=== PATIENT | female | born 1975 | race Hispanic/Latino ===

== ENCOUNTER 2020-08-25 19:36 | Emergency (ER) | payer OTHER ==
[2020-08-25 21:51] LABS: BASOPHILS % (AUTO) 0.5 % (0.0-5.0); EOSINOPHILS % (AUTO) 1.5 % (0.0-8.0); HEMATOCRIT 41.3 % (36-48); LYMPHOCYTES % (AUTO) 29.8 % (21.0-51.0); MEAN CORPUSCULAR HEMOGLOBIN 28.5 pg (27.0-33.0); MEAN CORPUSCULAR HGB CONC 32.2 g/dL (32.0-36.0); MEAN CORPUSCULAR VOLUME 88.6 fL (79-99); MONOCYTES % (AUTO) 7.3 % (3.0-13.0); NEUTROPHILS % (AUTO) 60.5 % (40.0-77.0); PLATELET COUNT (AUTO) 388 K/uL (130-400); RED BLOOD CELL COUNT(AUTO) 4.66 MIL/uL (4.00-5.50); RED CELL DISTRIBUTION WIDTH 13.3 % (11.0-15.5); WHITE BLOOD COUNT (AUTO) 13.1 K/uL (4.8-10.8)
[2020-08-25 22:04] LABS: ALBUMIN 3.6 g/dL (3.5-5.0); BILIRUBIN,TOTAL 0.2 mg/dL (0.2-1.0); CREATININE 0.9 mg/dL (0.5-1.5); POTASSIUM 3.8 mmol/L (3.5-5.1); TOTAL PROTEIN, SERUM 7.9 g/dL (6.0-8.3)
[2020-08-25 22:09] LABS: APPEARANCE,URINE Clear (CLEAR); BILIRUBIN,URINE Negative (NEGATIVE); COLOR,URINE Yellow (YELLOW); GLUCOSE, URINE (UA) Negative (NEGATIVE); KETONES,URINE Negative (NEGATIVE); LEUKOCYTE ESTERASE ,URINE Negative (NEGATIVE); NITRATE,URINE Negative (NEGATIVE); OCCULT BLOOD,URINE Negative (NEGATIVE); PH,URINE 6.5 (5.0-8.0); PROTEIN,URINE Negative (NEGATIVE)
[2020-08-25] MEDS ORDERED: ONDANSETRON HCL 4 MG/2 ML VIAL ONE (22:22)
[2020-08-25] MEDS ORDERED: MORPHINE SULFATE 4 MG/1ML SYG ONE (22:23)
[2020-08-25] MEDS ORDERED: METRONIDAZOLE 500 MG TABLET ONE (23:20)
== END 2020-08-25 23:28 | disposition home or self-care (01) ==
LOC: EDH 19:36
DX: K57.30 Diverticulosis of large intestine without perforation or abscess without bleeding (principal); J45.909 Unspecified asthma, uncomplicated; Z86.73 Personal history of transient ischemic attack (TIA), and cerebral infarction without residual deficits; Z98.51 Tubal ligation status; Z90.710 Acquired absence of both cervix and uterus
CPT/HCPCS: 36415; 74176; 80053; 81003; 81025; 83605; 83690; 85025; 96374; 96375; 99284; J2270; J2405

== ENCOUNTER 2020-09-04 22:43 | Emergency (ER) | payer MEDICARE, OTHER ==
[2020-09-04 23:06] LABS: BASOPHILS % (AUTO) 0.6 % (0.0-5.0); HEMATOCRIT 38.6 % (36-48); LYMPHOCYTES % (AUTO) 27.2 % (21.0-51.0); MEAN CORPUSCULAR HEMOGLOBIN 28.6 pg (27.0-33.0); MEAN CORPUSCULAR HGB CONC 32.9 g/dL (32.0-36.0); MEAN CORPUSCULAR VOLUME 86.9 fL (79-99); MONOCYTES % (AUTO) 7.5 % (3.0-13.0); NEUTROPHILS % (AUTO) 59.3 % (40.0-77.0); PLATELET COUNT (AUTO) 395 K/uL (130-400); RED BLOOD CELL COUNT(AUTO) 4.44 MIL/uL (4.00-5.50); RED CELL DISTRIBUTION WIDTH 13.5 % (11.0-15.5); WHITE BLOOD COUNT (AUTO) 12.8 K/uL (4.8-10.8)
[2020-09-04] MEDS ORDERED: IPRATROPIUM/ALBUTEROL SULFATE 3 ML SOLUTION IH ONE (23:13)
[2020-09-04 23:16] LABS: CREATININE 0.8 mg/dL (0.5-1.5)
[2020-09-04 23:21] LABS: ALBUMIN 3.2 g/dL (3.5-5.0); BILIRUBIN,TOTAL 0.2 mg/dL (0.2-1.0); TOTAL PROTEIN, SERUM 7.4 g/dL (6.0-8.3)
[2020-09-04] MEDS ORDERED: ALBUTEROL SULFATE 0.083% 2.5 MG/3 ML INH IH ONE (23:31)
[2020-09-04] MEDS ORDERED: DEXAMETHASONE SOD PHOSPHATE 10MG/ML 1ML VIAL ONE (23:38)
[2020-09-04] MEDS ORDERED: BENZONATATE 100 MG CAPSULE PO ONE (23:39)
[2020-09-04] MEDS ORDERED: CEFTRIAXONE SODIUM 1 GM ONE (23:39)
[2020-09-04] MEDS ORDERED: SODIUM CHLORIDE 0.9% 50 ML IV ONE (23:40)
== END 2020-09-05 00:41 | disposition home or self-care (01) ==
LOC: EDH 22:43
DX: J45.31 Mild persistent asthma with (acute) exacerbation (principal); J02.0 Streptococcal pharyngitis; Z90.710 Acquired absence of both cervix and uterus
CPT/HCPCS: 36415; 71045; 80053; 85025; 94640 ×2; 96374; 96375; 99284; J0696; J1100

== ENCOUNTER 2022-04-11 20:53 | Emergency (ER) | payer MEDICARE, OTHER ==
[~2022-04-11] VITALS: Ht 165.1 cm; Wt 120.2 kg
[2022-04-11 21:12] VITALS: BP 132/81
[2022-04-11] MEDS ORDERED: IBUP-2071 PO (21:28)
[2022-04-11] MEDS ORDERED: HYDROCODONE/ACETAMINOPHEN 5/325 MG TAB PO ONE (21:30)
== END 2022-04-11 21:49 | disposition home or self-care (01) ==
LOC: EDH 20:53
DX: S86.912A Strain of unspecified muscle(s) and tendon(s) at lower leg level, left leg, initial encounter (principal); J45.909 Unspecified asthma, uncomplicated; E66.01 Morbid (severe) obesity due to excess calories; Z86.73 Personal history of transient ischemic attack (TIA), and cerebral infarction without residual deficits; Z90.710 Acquired absence of both cervix and uterus; Z68.41 Body mass index [BMI] 40.0-44.9, adult; X58.XXXA Exposure to other specified factors, initial encounter; Y93.89 Activity, other specified; Y92.89 Other specified places as the place of occurrence of the external cause; Y99.8 Other external cause status
CPT/HCPCS: 29505; 73562

== ENCOUNTER → 2022-09-07 | Outpatient (CLI) | payer OTHER, MEDICARE ==
[~2022-09-07] MED LIST: IBUP-2071 PO
== END | disposition home or self-care (01) ==
LOC: RAH 10:16
PROVIDERS: ATTEND Internal Medicine Gastroenterology
DX: R13.12 Dysphagia, oropharyngeal phase (principal); R63.30 Feeding difficulties, unspecified
CPT/HCPCS: 74230; 92611

== ENCOUNTER 2022-09-15 20:46 | Inpatient (IN) | payer OTHER, MEDICARE ==
[2022-09-15] MEDS ORDERED: KETOROLAC 15MG/ML VIAL (15MG/ML) ONE (21:19)
[2022-09-15] MEDS ORDERED: MORPHINE 4 MG SYG ONE (23:03)
[2022-09-15] MEDS ORDERED: ONDANSETRON 4MG INJ ONE (23:03)
[2022-09-15] MEDS ORDERED: ETOMIDATE 20MG VIAL ONE (23:11)
[2022-09-16] MEDS ORDERED: HYDRALAZINE 20MG/ML VIAL IV PRN (01:00)
[2022-09-16] MEDS ORDERED: TEMAZEPAM 15 MG CAPSULE PO PRN (01:00)
[2022-09-16] MEDS ORDERED: LABETALOL 20MG SYG IV PRN (01:00)
[2022-09-16] MEDS ORDERED: LACTULOSE 20 GM/30 ML UDCUP PO PRN (01:00)
[2022-09-16] MEDS ORDERED: DOCUSATE SODIUM 100 MG CAP PO PRN (01:00)
[2022-09-16] MEDS ORDERED: ACETAMINOPHEN 650 MG SUPPOSITORY RC PRN (01:00)
[2022-09-16] MEDS ORDERED: ACETAMINOPHEN 325 MG TAB PO PRN (01:00)
[2022-09-16] MEDS ORDERED: ONDANSETRON 4MG INJ IVP PRN (01:00)
[2022-09-16] MEDS ORDERED: CLONIDINE HCL 0.1 MG TABLET PO PRN (01:00)
[2022-09-16] MEDS: MORPHINE 2 MG SYG IVP PRN ×3 (01:20→14:31)
[2022-09-16] MEDS: LACTATED RINGERS 1000ML 1,000 ML IV SCH ×3 (01:20→20:26)
[2022-09-16 01:21] LABS: HEMATOCRIT 37.6 % (36-48); MEAN CORPUSCULAR HEMOGLOBIN 27.5 pg (27.0-33.0); MEAN CORPUSCULAR HGB CONC 32.7 g/dL (32.0-36.0); MEAN CORPUSCULAR VOLUME 83.9 fL (79-99); RED BLOOD CELL COUNT(AUTO) 4.48 MIL/uL (4.00-5.50); RED CELL DISTRIBUTION WIDTH 14.4 % (11.0-15.5)
[2022-09-16 01:28] LABS: CREATININE 0.8 mg/dL (0.5-1.5); POTASSIUM 3.7 mmol/L (3.5-5.1)
[2022-09-16] MEDS ORDERED: KETOROLAC 30MG VIAL (30MG/ML) ONE (02:45)
[2022-09-16] MEDS: KETOROLAC 30MG VIAL (30MG/ML) IVP PRN ×2 (03:04→20:26)
[2022-09-16] MEDS ORDERED: OMEP40CA21 PO (03:53)
[2022-09-16] MEDS ORDERED: FAMO-136 PO (03:53)
[2022-09-16 04:30] VITALS: BP 123/77
[2022-09-16] MEDS: HYDROCODONE/ACETAMINOPHEN 5/325 MG TAB PO PRN ×2 (04:54→10:43)
[2022-09-16] MEDS: INSULIN HUMULIN R 100 UNIT/ML 3ML SQ SCH ×4 (05:59→20:20)
[2022-09-16] MEDS: FAMOTIDINE 20MG TAB PO SCH ×2 (07:45→20:26)
[2022-09-16 07:50] VITALS: BP 131/71
[2022-09-16 11:15] VITALS: BP 111/70
[2022-09-16] MEDS ORDERED: IBUPROFEN 800 MG TAB PO PRN (12:00)
[2022-09-16 15:52] VITALS: BP 105/77
[2022-09-16 20:01] VITALS: BP 101/70
[2022-09-16] MEDS: ENOXAPARIN SODIUM 40 MG/0.4 ML SYRINGE SQ SCH (20:26)
[2022-09-16] MEDS ORDERED: FAMOTIDINE 20MG TAB PO SCH (21:00)
[2022-09-17 00:04] VITALS: BP 129/71
[2022-09-17 03:49] VITALS: BP 134/71
[2022-09-17] MEDS: INSULIN HUMULIN R 100 UNIT/ML 3ML SQ SCH ×2 (05:51→12:00)
[2022-09-17 07:30] VITALS: BP 128/72
[2022-09-17] MEDS: FAMOTIDINE 20MG TAB PO SCH (09:36)
[2022-09-17] MEDS: ENOXAPARIN SODIUM 40 MG/0.4 ML SYRINGE SQ SCH (09:36)
[2022-09-17 11:00] VITALS: BP 124/67
== END 2022-09-17 15:20 | disposition home or self-care (01) | DRG 556 ==
LOC: EDH 20:46 → EDHIP 09-16 00:32 → OBSVTOIN 09-16 00:32 → 4CH 09-16 02:36 → EDHIP 09-16 02:56 → 4CH 09-16 04:40
PROVIDERS: ADMIT Internal Medicine Critical Care Medicine; ATTEND Internal Medicine Critical Care Medicine
DX: M25.562 Pain in left knee (principal); I69.354 Hemiplegia and hemiparesis following cerebral infarction affecting left non-dominant side; W01.0XXA Fall on same level from slipping, tripping and stumbling without subsequent striking against object, initial encounter; E66.01 Morbid (severe) obesity due to excess calories; Z20.822 Contact with and (suspected) exposure to COVID-19; K21.9 Gastro-esophageal reflux disease without esophagitis; J45.909 Unspecified asthma, uncomplicated; K57.90 Diverticulosis of intestine, part unspecified, without perforation or abscess without bleeding; Z90.710 Acquired absence of both cervix and uterus; Y93.89 Activity, other specified; Y92.89 Other specified places as the place of occurrence of the external cause; Y99.8 Other external cause status
CPT/HCPCS: 36415; 73562; 73721; 80048; 82948; 83735; 85027; 87635; 93005; 97039; G0378; J1650; J1885; J2270; J2405; J3490; J7120

== ENCOUNTER 2023-01-24 22:33 | Emergency (ER) | payer OTHER, MEDICARE ==
[~2023-01-24] VITALS: Ht 165.1 cm; Wt 108.4 kg
[~2023-01-24 22:33] MED LIST changes: +FAMO-136 PO
[2023-01-24] MEDS ORDERED: RACEPINEPHRINE HCL 2.25% 0.5 ML NEB SOLN NEB STA (22:59)
[2023-01-24] MEDS ORDERED: FAMOTIDINE 20MG VIAL IV ONE (23:00)
[2023-01-24] MEDS ORDERED: EPINEPHRINE PF 1MG (1:1,000) 1 MG/ML AMP ONE (23:35)
[2023-01-24] MEDS ORDERED: SODIUM CHLORIDE 3% FOR INHALATION 4 ML/AMP VIAL.NEB IH ONE (23:36)
[2023-01-25] MEDS ORDERED: DEXAMETHASONE SOD PHOSPHATE 4 MG/ML 1ML VIAL IVP ONE (00:30)
[2023-01-25] MEDS ORDERED: EPIN0.3P3 IJ (02:33)
[2023-01-25] MEDS ORDERED: PRED20TA3 PO ×2 (02:33→02:36)
[2023-01-25] MEDS ORDERED: FAMO40TA7 PO (02:34)
[2023-01-25] MEDS ORDERED: DIPH50 PO (02:34)
[2023-01-25 02:44] VITALS: BP 122/63
== END 2023-01-25 03:07 | disposition home or self-care (01) ==
LOC: EDH 22:33
DX: T78.2XXA Anaphylactic shock, unspecified, initial encounter (principal); T78.40XA Allergy, unspecified, initial encounter; J45.909 Unspecified asthma, uncomplicated; E66.01 Morbid (severe) obesity due to excess calories; Z68.39 Body mass index [BMI] 39.0-39.9, adult; Z98.890 Other specified postprocedural states; Z90.710 Acquired absence of both cervix and uterus; X58.XXXA Exposure to other specified factors, initial encounter
CPT/HCPCS: 99291; 96374; 94640; 96375; J3490; J0171; J1100